=== PATIENT | male | born 1965 | race Caucasian/White ===

== ENCOUNTER 2017-09-27 12:16 | Emergency (ER) | payer BC, OTHER ==
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
[2017-09-27] MEDS ORDERED: Sulfamethoxazole/Trimethoprim 800-160 MG Tab PO ONE (13:06)
[2017-09-27] MEDS ORDERED: Bacitracin/Neomycin/Polymyxin B Oint 0.9 GM U/D Packet TOP ONE (13:07)
[2017-09-27 13:46] VITALS: BP 108/69
== END 2017-09-27 14:00 | disposition home or self-care (01) ==
LOC: LL.ED 12:16
DX: L03.116 Cellulitis of left lower limb (principal); J44.9 Chronic obstructive pulmonary disease, unspecified; I10 Essential (primary) hypertension; F17.210 Nicotine dependence, cigarettes, uncomplicated; E78.5 Hyperlipidemia, unspecified; F41.8 Other specified anxiety disorders; Z71.6 Tobacco abuse counseling; Z79.899 Other long term (current) drug therapy
CPT/HCPCS: 87070; 99284; A9270

== ENCOUNTER 2019-09-18 18:10 | Emergency (ER) | payer BC, MEDICAID ==
[2019-09-18 18:20] VITALS: BP 123/90; PULSE 80
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
== END 2019-09-18 19:05 | disposition home or self-care (01) ==
LOC: LL.ED 18:10 → SUPCPDRO 18:10 → LL.ED 19:05
DX: S50.12XA Contusion of left forearm, initial encounter (principal); J43.1 Panlobular emphysema; I10 Essential (primary) hypertension; M15.0 Primary generalized (osteo)arthritis; Z71.6 Tobacco abuse counseling; F17.210 Nicotine dependence, cigarettes, uncomplicated; F41.8 Other specified anxiety disorders; G62.9 Polyneuropathy, unspecified; F41.9 Anxiety disorder, unspecified; V19.9XXA Pedal cyclist (driver) (passenger) injured in unspecified traffic accident, initial encounter
CPT/HCPCS: 73090-LT; 99283